=== PATIENT | female | born 1965 | race Caucasian/White ===

== ENCOUNTER → 2025-02-24 11:50 | Outpatient (REF) | payer OTHER, SELFPAY | LOC: HWWDC 11:50 | PROVIDERS: ATTENDING PHYSICIAN Nurse Practitioner Women's Health; FAMILY PHYSICIAN Internal Medicine | DX: Z12.31 Encounter for screening mammogram for malignant neoplasm of breast (principal) | CPT/HCPCS: 77063; 77067 ==